=== PATIENT | female | born 1995 | race Caucasian/White ===

== ENCOUNTER 2017-11-05 23:47 | Emergency (ER) | payer BC ==
[~2017-11-05] VITALS: Ht 162.6 cm; Wt 58.2 kg
[~2017-11-05 23:47] MED LIST: IRON325 MG PO; MOTRIN 800800 MG/TAB PO; PERCOCET 325 MG1 TA2 PO; PRENATAL VITAMI1 T12 PO
[2017-11-06 00:50] LABS: BASO % 0.2 % (0.0-2.0); EOS # 0.1 (0.0-0.7); EOS % 1.6 % (0-4.0); GRAN # 5.9 (1.4-6.5); GRAN % 69.9 % (42.2-75.2); HEMATOCRIT 42.2 % (37.0-47.0); HEMOGLOBIN 13.8 g/dl (12.5-16.0); LYMPH # 1.6 (1.2-3.4); LYMPH % 18.9 % (20.0-51.0); MEAN CELL VOLUME 89 fl (80.0-100.0); MEAN CORPUSCULAR HEMOGLOBIN 29 pg (27.0-31.0); MEAN CORPUSCULAR HGB CONC 33 g/dl (33.0-37.0); MEAN PLATELET VOLUME 10.8 fl (7.4-10.4); MONO # 0.8 (0.1-0.6); MONO % 8.9 % (1.7-9.3); PLATELET COUNT 213 K/mm3 (130-400); RED BLOOD COUNT 4.73 M/mm3 (4.10-5.30); REDCELL DISTRIBUTION WIDTH-CV 12.5 % (11.5-14.5)
[2017-11-06 01:58] VITALS: BP 109/78; PULSE 100; TEMP 97.9
[2017-11-06] MEDS ORDERED: PREDNISONE20 MG PO (02:15)
== END 2017-11-06 02:22 | disposition home or self-care (01) ==
LOC: COL.ER 23:47
PROVIDERS: Nurse Practitioner
DX: R06.02 Shortness of breath (principal); J45.909 Unspecified asthma, uncomplicated
CPT/HCPCS: J7512

== ENCOUNTER 2018-12-04 21:33 | Emergency (ER) | payer BC ==
[~2018-12-04 21:33] MED LIST changes: +PREDNISONE20 MG PO
[2018-12-04 21:43] VITALS: BP 122/88; PULSE 80; TEMP 98
== END 2018-12-04 23:57 | disposition left against medical advice (07) ==
LOC: COL.ER 21:33
DX: R11.2 Nausea with vomiting, unspecified (principal)

== ENCOUNTER 2019-08-18 10:45 | Emergency (ER) | payer OTHER ==
[~2019-08-18] VITALS: Ht 162.6 cm; Wt 59.1 kg
[2019-08-18 10:59] VITALS: BP 135/91; TEMP 98.4
[2019-08-18 11:24] LABS: COLLECTION METHOD CLEAN CATCH
[2019-08-18 11:30] LABS: PH 7 (5-8); SQUAMOUS EPITHELIAL 0-2 /hpf; URINE APPEARANCE Clear; URINE BACTERIA Rare /hpf; URINE BILIRUBIN Negative (NEGATIVE); URINE BLOOD Negative (NEGATIVE); URINE COLOR Straw; URINE GLUCOSE Negative (NEGATIVE); URINE KETONE Negative (NEGATIVE); URINE LEUKOCYTE ESTERASE Negative (NEGATIVE); URINE NITRATE Negative (NEGATIVE); URINE PROTEIN(semi-quant) Negative (NEGATIVE); URINE RBC 0-2 /hpf; URINE UROBILINOGEN Negative (NEGATIVE)
[2019-08-18 11:38] LABS: TRICYCLIC ANTIDEPRESS URINE NEGATIVE
[2019-08-18 11:41] LABS: BASO # 0.1 (0.0-0.2); BASO % 0.7 % (0.0-2.0); EOS # 0.3 (0.0-0.7); EOS % 3.7 % (0-4.0); GRAN # 4.3 (1.4-6.5); GRAN % 62.9 % (42.2-75.2); HEMATOCRIT 41.7 % (37.0-47.0); HEMOGLOBIN 13.4 g/dl (12.5-16.0); LYMPH # 1.8 (1.2-3.4); LYMPH % 26.3 % (20.0-51.0); MEAN CELL VOLUME 90 fl (80.0-100.0); MEAN CORPUSCULAR HEMOGLOBIN 29 pg (27.0-31.0); MEAN CORPUSCULAR HGB CONC 32 g/dl (33.0-37.0); MEAN PLATELET VOLUME 11.3 fl (7.4-10.4); MONO # 0.4 (0.1-0.6); MONO % 6.1 % (1.7-9.3); PLATELET COUNT 232 K/mm3 (130-400); RED BLOOD COUNT 4.64 M/mm3 (4.10-5.30); REDCELL DISTRIBUTION WIDTH-CV 12.9 % (11.5-14.5)
[2019-08-18 11:53] LABS: ACETAMINOPHEN < 10 ug/mL (10-30); ALCOHOL(ethanol),MEDICAL < 10 mg/dL; SALICYLATE < 1.0 mg/dL
[2019-08-18] MEDS ORDERED: EFFEXOR XR37.5 MG/CA PO (13:53)
[2019-08-18] MEDS ORDERED: KLONOPIN 1MG1 MG PO (13:54)
[2019-08-18 14:09] VITALS: PULSE 84
== END 2019-08-18 14:10 | disposition home or self-care (01) ==
LOC: COL.ER 10:45
PROVIDERS: Physician Assistant
DX: F43.20 Adjustment disorder, unspecified (principal); F32.9 Major depressive disorder, single episode, unspecified

== ENCOUNTER → 2021-04-18 | Outpatient (REF) ==
[~2021-04-18] MED LIST changes: +CLARITIN 1010 MG/TAB PO; +EFFEXOR XR37.5 MG/CA PO; +EPIPEN 2-PAK1 MG/ML IM; +KLONOPIN 1MG1 MG PO; +PREDNISONE10 MG PO; +ZOFRAN ODT4 MG PO
== END ==
LOC: COL.EMP 13:57
DX: Z20.822 Contact with and (suspected) exposure to COVID-19 (principal)

== ENCOUNTER 2021-12-20 11:05 | Day surgery (SDC) | payer OTHER ==
[~2021-12-20] VITALS: Ht 162.6 cm; Wt 65.2 kg
[2021-12-20] MEDS ORDERED: LAMICTAL 25MG T25 MG PO (12:33)
[2021-12-20] MEDS ORDERED: FLOVENT 110MCG7.9 GM IH (12:33)
[2021-12-20] MEDS ORDERED: DIFLUCAN150 MG PO (12:34)
[2021-12-20] MEDS ORDERED: FLONASEALLERGY NS ×3 (12:34→12:44)
[2021-12-20] MEDS ORDERED: FLOVENT DI100 MCG/Ac IH (12:38)
[2021-12-20] MEDS ORDERED: FLOVENT DI50 MCG/Act IH (12:38)
[2021-12-20] MEDS ORDERED: KLONOPIN WAFE0.25 MG PO (12:39)
[2021-12-20] MEDS ORDERED: AVIANE 0.02 MG-1 TAB PO (12:40)
[2021-12-20] MEDS ORDERED: ZYRTEC 10MG10 MG PO (12:40)
[2021-12-20] MEDS ORDERED: TYLENOL 500MG500 MG (12:41)
[2021-12-20] MEDS ORDERED: MELATONIN1 MG PO (12:41)
[2021-12-20 12:48] VITALS: BP 134/90; PULSE 82; TEMP 97.3
[2021-12-20] MEDS ORDERED: OXYCODONE H5 MG/5 ML PO (14:34)
[2021-12-20 15:05] VITALS: BP 133/80; PULSE 80; TEMP 97.8
--- NOTE | 2021-12-20 15:05 | NUR ---
PT TO BAY 8 PER CART FROM PACU. RECEIVED REPORT FROM CHINTAN KEARNS. VS OBTAINED. PT RESTING COMFORTABLY. DENIES ANY NEEDS AT THIS TIME. CALL LIGHT WITHIN REACH. WILL CONTINUE TO MONITOR PT.
[2021-12-20 15:20] VITALS: BP 126/78; PULSE 73
--- NOTE | 2021-12-20 15:20 | NUR ---
PT TOLERATING ICE WITHOUT DIFFICULY. PT RATING PAIN AT 7/10. DISCUSSED PAIN MEDICATION. WILL CONTINUE TO MONITOR PT.
[2021-12-20 15:25] VITALS: TEMP 98.7
[2021-12-20 15:35] VITALS: BP 121/82; PULSE 68
--- NOTE | 2021-12-20 15:35 | NUR ---
PT CONTINUE TO TOLERATE ICE CHIPS AND WATER. DENIES ANY NEEDS AT THIS TIME. WILL CONTINUE TO MONITOR PT.
[2021-12-20 15:50] VITALS: BP 121/79; PULSE 63
--- NOTE | 2021-12-20 15:50 | NUR ---
PT RATES PAIN AT 5/10. STATES PAIN IS MORE TOLERABLE.
--- NOTE | 2021-12-20 15:50 | NUR ---
PT STATES PAIN IS MORE TOLERABLE. WILL CONTINUE TO MONITOR PT.
--- NOTE | 2021-12-20 16:05 | NUR ---
IV DC'D. PT TOLERATED WELL.
--- NOTE | 2021-12-20 16:15 | NUR ---
DISCHARGE EDUCATION COMPLETED WITH PT AND SO. VERBALIZED UNDERSTANDING OF HOME AND FOLLOW UP CARE. ALL QUESTIONS ANSWERED. DISCHARGE PAPERWORK GIVEN TO PT.
--- NOTE | 2021-12-20 16:45 | NUR ---
PT OFF UNIT PER WHEELCHAIR. PT DISCHARGE TO HOME WITH SO PER PERSONAL VEHICLE.
== END 2021-12-20 16:45 | disposition home or self-care (01) ==
LOC: SDCO 11:05
DX: J34.2 Deviated nasal septum (principal); J34.3 Hypertrophy of nasal turbinates; J35.01 Chronic tonsillitis
CPT/HCPCS: J0330; J1100; J1885; J2405; J2704; J3010; J7120

== ENCOUNTER 2022-12-20 14:01 | Emergency (ER) | payer OTHER ==
[~2022-12-20] VITALS: Ht 162.6 cm; Wt 68.2 kg
[~2022-12-20 14:01] MED LIST changes: +AVIANE 0.02 MG-1 TAB PO; +DIFLUCAN150 MG PO; +FLONASEALLERGY NS; +FLOVENT 110MCG7.9 GM IH; +FLOVENT DI100 MCG/Ac IH; +FLOVENT DI50 MCG/Act IH; +KLONOPIN WAFE0.25 MG PO; +LAMICTAL 25MG T25 MG PO; +MELATONIN1 MG PO; +OXYCODONE H5 MG/5 ML PO; +TYLENOL 500MG500 MG; +ZYRTEC 10MG10 MG PO
[2022-12-20 14:05] VITALS: TEMP 97.9
[2022-12-20 15:28] LABS: BASO # 0.1 K/mm3 (0.0-0.2); BASO % 0.6 % (0.0-2.0); EOS # 0.2 K/mm3 (0.0-0.7); EOS % 2.9 % (0.0-4.0); GRAN # 5.7 K/mm3 (1.4-6.5); GRAN % 71.9 % (42.2-75.2); HEMATOCRIT 43.5 % (37.0-47.0); HEMOGLOBIN 14.2 g/dl (12.5-16.0); LYMPH # 1.4 K/mm3 (1.2-3.4); LYMPH % 17.6 % (20.0-51.0); MEAN CELL VOLUME 90 fl (80.0-100.0); MEAN CORPUSCULAR HEMOGLOBIN 29 pg (27-31); MEAN CORPUSCULAR HGB CONC 33 g/dl (33.0-37.0); MEAN PLATELET VOLUME 10.5 fl (7.4-10.4); MONO # 0.5 K/mm3 (0.1-0.6); MONO % 6.6 % (1.7-9.3); PLATELET COUNT 320 K/mm3 (130-400); RED BLOOD COUNT 4.85 M/mm3 (4.10-5.30); REDCELL DISTRIBUTION WIDTH-CV 12.4 % (11.5-14.5)
[2022-12-20 15:55] LABS: ALANINE AMINOTRANSFERASE 28 U/L (0-55); ALBUMIN 4.4 gm/dL (3.5-5.0); ALKALINE PHOSPHATASE 64 U/L (40-150); ANION GAP 12 mmol/L (7-16); AST,SGOT 22 U/L (5-34); BILIRUBIN,TOTAL 0.2 mg/dL (0.2-1.2); BLOOD UREA NITROGEN 13 mg/dL (7-19); CALCIUM 10.2 mg/dL (8.4-10.2); CARBON DIOXIDE 23 mmol/L (22-29); CHLORIDE 108 mmol/L (98-107); CREATININE, serum 0.87 mg/dL (0.57-1.11); GLUCOSE 94 mg/dL (70-99); POTASSIUM 3.7 mmol/L (3.5-4.5); SODIUM 143 mmol/L (136-145)
[2022-12-20 16:03] LABS: TROPONIN-I < 0.010 ng/mL (0.00-0.033)
[2022-12-20 16:30] VITALS: BP 127/95; PULSE 88
== END 2022-12-20 16:31 | disposition home or self-care (01) ==
LOC: COL.ER 14:01
PROVIDERS: Emergency Medicine
DX: R00.2 Palpitations (principal); R00.0 Tachycardia, unspecified; R07.89 Other chest pain
CPT/HCPCS: J7030

== ENCOUNTER 2023-02-12 08:24 | Day surgery (SDC) | payer OTHER ==
[~2023-02-12] VITALS: Ht 162.6 cm; Wt 66.3 kg
[2023-02-12] MEDS ORDERED: DESYREL 50MG50 MG PO (08:56)
[2023-02-12] MEDS ORDERED: LAMICTAL150 MG PO (08:56)
[2023-02-12] MEDS ORDERED: KLONOPIN 0.5MG0.5 MG PO (08:57)
[2023-02-12] MEDS ORDERED: BENTYL 10MG10 MG/CAP PO (10:04)
[2023-02-12] MEDS ORDERED: PEPCID 20MG TAB20 MG PO (10:05)
[2023-02-12 10:13] VITALS: BP 115/85; PULSE 71; TEMP 98.9
[2023-02-12 10:25] VITALS: BP 113/90; PULSE 77; TEMP 98
--- NOTE | 2023-02-12 10:25 | NUR ---
PATIENT AMBULATED WITH STEADY GAIT TO THE CHAIR, ALERT AND ORIENTED X4. BREATHING REGULAR AND UNLABORED. SKIN WARM AND DRY. DENIES PAIN, NAUSEA AND SHORTNESS OF BREATH. NURSE HANDOFF COMPLETED IN ROOM. PATIENT HAD GRAPE JUICE AND A MUFFIN, BOTH TOLERATED WELL WITH NO DYSPHAGIA. PATIENT RESTING IN CHAIR WITH CALL LIGHT IN REACH. FRIEND, LORRI, IN ROOM.
[2023-02-12 10:30] VITALS: BP 117/93; PULSE 72
[2023-02-12 10:45] VITALS: BP 122/91; PULSE 71
[2023-02-12 11:00] VITALS: BP 119/86; PULSE 64
[2023-02-12 11:01] VITALS: BP 110/86; PULSE 80
--- NOTE | 2023-02-12 11:53 | NUR ---
DR. PARRA MET WITH PATIENT AT 1056 TO DISCUSS PROCEDURE. DISCHARGE TEACHING COMPLETED WITH PRINTED EDUCATION AND INSTRUCTIONS SENT HOME WITH PATIENT. PATIENT VERBALIZED UNDERSTANDING OF TEACHING. IV REMOVED. GAUZE AND COBAN DRESSING PLACED OVER IV REMOVAL SITE. PATIENT DISCHARGED HOME WITH [facility] [employer].
== END 2023-02-12 11:15 | disposition home or self-care (01) ==
LOC: SDCO 08:24
DX: K29.30 Chronic superficial gastritis without bleeding (principal); K22.89 Other specified disease of esophagus; K21.9 Gastro-esophageal reflux disease without esophagitis; R19.7 Diarrhea, unspecified; R10.84 Generalized abdominal pain; K64.0 First degree hemorrhoids; R15.2 Fecal urgency
CPT/HCPCS: J2704; J7120